=== PATIENT | male | born 1965 | race Hispanic/Latino ===

== ENCOUNTER 2020-07-23 03:20 | Emergency (ER) | payer SELFPAY ==
[~2020-07-23] VITALS: Ht 170.2 cm; Wt 89.4 kg
--- NOTE | 2020-07-23 03:25 | NUR ---
ARRIVAL PT ARRIVED AMBULATORY POV WITH C/O ACUTE ONSET LEFT FLANK PAIN RADIATING TO ABDOMEN. PT DENIES N/V/D. PT STATES PAIN IS INTERMITTANT AND RATES CURRENT PAIN 05/21. PT BP ELEVATED 182/81. PT A & O X 3, RR REGULAR, UNLABORED. ABDOMEN SOFT, NON-DISTENDED BS WNL. PT PLACED IN GOWN, UA OBTAINED, IV INITIATED, LABS DRAWN, PLACED ON MONITOR FOR BP, HR, AND SPO2. AT BEDSIDE, ERP AT BEDSIDE, PENDING COMPLETION OF ORDERS.
[2020-07-23 03:27] VITALS: BP 181/82
[2020-07-23] MEDS ORDERED: NS 1000ML 1,000 ML IV STA (03:34)
[2020-07-23] MEDS ORDERED: TORADOL IV STA (03:34)
--- NOTE | 2020-07-23 03:38 | ER.PDOC ---
General Chief Complaint: Flank Pain Stated Complaint: KIDNEY PAIN Time seen by MD: 03:36 Source: patient Exam Limitations: no limitations History of Present Illness Initial Comments Intermittent left flank pain radiating to the left lower quadrant since yesterday. No fever or chills. No nausea or vomiting. Pain is mild to moderate. Timing/Duration: intermittent Severity/Quality: sharpness Radiation: LLQ Associated Symptoms: denies symptoms Exacerbated by: nothing Relieved By: nothing Vital Signs First Vital Signs Date Time Temp Pulse Resp B/P (MAP) Pulse Ox O2 Delivery O2 Flow Rate FiO2 07/23/20 03:27 98.0 72 16 07/23/20 03:27 96 07/23/20 03:27 181/82 (115) Room Air Last Vital Signs Date Time Temp Pulse Resp B/P (MAP) Pulse Ox O2 Delivery O2 Flow Rate FiO2 07/23/20 03:27 98.0 72 16 181/82 (115) 96 Room Air Past Medical History Medical History: diabetes, high cholesterol Surgical History: no surgical history Family History Significant Family History: no pertinent family hx Social History Smoking: non-smoker Alcohol Use: none Drug Use: none Constitutional: no symptoms reported EENTM: no symptoms reported Respiratory: no symptoms reported Cardiovascular: no symptoms reported Gastrointestinal: see HPI Genitourinary: see HPI All Other Systems: Reviewed and Negative Physical Exam General Appearance: No Apparent Distress, WD/WN Neck: Non-Tender, Full Range of Motion, Supple, Normal Inspection Respiratory: chest non-tender, lungs clear, normal breath sounds, no respiratory distress, no accessory muscle use Cardiovascular: Normal Peripheral Pulses, Regular Rate, Rhythm, No Edema, No Gallop, No JVD, No Murmur Gastrointestinal: Normal Bowel Sounds, No Organomegaly, No Pulsatile Mass, Tenderness (LLQ) Back: Normal Inspection, No CVA Tenderness, No Vertebral Tenderness Extremities: Normal Range of Motion, Non-Tender, Normal Inspection, No Pedal Edema, No Calf Tenderness, Normal Capillary Refill, Pelvis Stable Neurologic/Psychiatric: account liaison hospice II-XII NML as Tested, No Motor/Sensory Deficits, Alert, Normal Mood/Affect, Oriented x 3 Skin: Normal Color, Warm/Dry Lymphatic: No Adenopathy Results/Orders Results/Orders Orders - KEREN FIELDS MD Cbc With Auto Diff (07/23/20 03:34) Comprehensive Metabolic Panel (07/23/20 03:34) PT (07/23/20 03:34) Partial Thromboplastin Time. (07/23/20 03:34) Urinalysis (07/23/20 03:34) Ct Abd/Pelvis Wo Iv Contrast (07/23/20 03:34) Ketorolac Tromethamine (Toradol) (07/23/20 03:34) 0.9 % Sodium Chloride (Ns 1000ml) (07/23/20 03:34) 0.9 % Sodium Chloride (Ns 100ml) (07/23/20 03:40) Ketorolac Tromethamine (Toradol) (07/23/20 03:40) Urine Culture (07/23/20 03:26) Vital Signs Date Time Temp Pulse Resp B/P (MAP) Pulse Ox O2 Delivery O2 Flow Rate FiO2 07/23/20 03:27 98.0 72 16 181/82 (115) 96 Room Air 07/23/20 03:27 98.0 72 16 96 07/23/20 03:27 98.0 72 16 Administered Medications Medications (Trade) Dose Ordered Sig/Gita Route PRN Reason Start Time Stop Time Status Last Admin Dose Admin Ketorolac Tromethamine (Toradol) 30 mg STAT STAT IV 07/23/20 03:34 07/23/20 03:37 DC 07/23/20 03:46 30 MG Sodium Chloride 1,000 ml @ 1,200 mls/hr Q50M STAT IV 07/23/20 03:34 07/23/20 04:23 DC 07/23/20 03:46 1,200 MLS/HR Laboratory Tests Test 07/23/20 03:26 07/23/20 03:38 Urine Collection Type VOID Urine Color YELLOW (YELLOW) Urine Appearance CLEAR (CLEAR) Urine Bilirubin NEGATIVE MG/DL (NEGATIVE) Urine Ketones NEGATIVE (NEGATIVE) Urine Specific [place] >1.030 (1.005-1.035) Urine pH 5.0 (5.0-6.0) Urine Protein NEGATIVE (NEGATIVE) Urine Urobilinogen 0.2 (NEGATIVE) Urine Nitrate NEGATIVE (NEGATAIVE) Urine Leukocyte Esterase NEGATIVE (NEGATIVE) Urine Blood MODERATE (NEGATIVE) Urine RBC 0-2 RBC/HPF (NONE SEEN) Urine WBC 0-2 WBC/HPF (0-2) Urine Bacteria RARE (NONE SEEN) Urine Glucose NEGATIVE (NEGATIVE) White Blood Count 9.0 10^3/uL (4.5-11.0) Red Blood Count 4.16 10^6/uL (4.50-5.90) L Hemoglobin 12.8 g/dL (13.9-16.3) L Hematocrit 38.2 % (37.0-53.0) Mean Corpuscular Volume 91.8 fL (78-100) Mean Corpuscular Hemoglobin 30.8 pg (26-34) Mean Corpuscular Hemoglobin Concent 33.5 g/dL (33-36.5) Red Cell Distribution Width 13.7 % (11.5-14.5) Platelet Count 230 10^3/uL (150-400) Mean Platelet Volume 10.4 fL (7.8-11.0) Neutrophils (%) (Auto) 54.9 % (41.0-85.0) Lymphocytes (%) (Auto) 37.2 % (24.0-44.0) Monocytes (%) (Auto) 5.1 % (5.0-12.0) Neutrophils # (Auto) 4.9 10^3/uL (1.8-7.7) Lymphocytes # (Auto) 3.34 10^3/uL1 (1.0-4.8) Monocytes # (Auto) 0.5 10^3/uL (0.3-0.8) Absolute Immature Granulocyte (auto 0.01 10^3 u/L (0-2) Absolute Eosinophils (auto) 0.2 10^3/uL (0.0-0.2) Immature Granulocytes % 0.10 % (0.00-0.50) Eosinophils % 2.4 % (0.0-5.0) Basophils % 0.3 % (0.0-0.2) H Basophils # 0.0 10^3/uL (0.0-0.1) Prothrombin Time 9.4 SEC (9.3-11.3) Prothrombin Time INR (Non-Therap) 0.9 Activated Partial Thromboplast Time 20.4 SEC (24.67-30.72) Sodium Level 141 mmol/L (132-145) Potassium Level 3.9 mmol/L (3.6-5.2) Chloride Level 106.0 mmol/L (96-109) Carbon Dioxide Level 22.5 mmol/L (20.0-32) Anion Gap 16.4 Blood Urea Nitrogen 23 mg/dL (7-18) H Creatinine 1.14 mg/dL (0.59-1.40) Estimated GFR () 80.7 (>/=60) Est GFR (CKD-EPI)(Non-Afr [place]) 66.7 (>/=60) BUN/Creatinine Ratio 20.0 Glucose Level 164 mg/dL (70-110) H Calcium Level 9.3 mg/dL (8.4-10.5) Total Bilirubin 0.9 mg/dL (0.2-1.0) Aspartate Amino Transferase (AST) 24 U/L (0-35) Alanine Aminotransferase (ALT) 48 U/L (12-78) Alkaline Phosphatase 95 U/L (50-136) Total Protein 7.4 g/dL (6.4-8.2) Albumin 3.6 g/dL (3.4-5.0) Globulin 3.8 Albumin/Globulin Ratio 0.[address] abdomen/pelvis: No renal or ureteral stone or obstructive uropathy. 2. No acute process. Labs are normal. CT abdomen pelvis unremarkable. He continues to be pain-free. Reviewed labs and CT scan with him and he voiced understanding. ER DEPART Departure Time of Disposition: 04:31 Disposition: 01 HOME, SELF-CARE Impression: Primary Impression: Flank pain, acute Condition: Improved Referrals: ARNOLD VARGAS (PCP) PRIMARY CARE PROVIDER Additional Instructions: Ibuprofen Follow-up with your PCP in 2 to 3 days Return to ED if worsening pain or concerns Duration or Time Spent with Pa: 45 min KEREN FIELDS MD Jul 23, 2020 03:38
[2020-07-23] MEDS ORDERED: NS 100ML 100 ML IV ONE (03:40)
[2020-07-23] MEDS ORDERED: TORADOL ONE (03:40)
[2020-07-23 03:47] LABS: BASOPHIL % 0.3 % (0.0-0.2); EOSINOPHIL # 0.2 10^3/uL (0.0-0.2); EOSINOPHIL % 2.4 % (0.0-5.0); LYMPHOCYTES # 3.34 10^3/uL1 (1.0-4.8); LYMPHOCYTES % 37.2 % (24.0-44.0); MEAN CORP HGB 30.8 pg (26-34); MONOCYTES # 0.5 10^3/uL (0.3-0.8); MONOCYTES % 5.1 % (5.0-12.0); NEUTROPHIL # 4.9 10^3/uL (1.8-7.7); NEUTROPHILS % 54.9 % (41.0-85.0); PLATELET COUNT 230 10^3/uL (150-400); RED CELL DISTRIBUTION WIDTH 13.7 % (11.5-14.5)
--- NOTE | 2020-07-23 03:47 | NUR ---
CT PT TO CT VIA WHEELCHAIR AT THIS TIME WITH RAD. SIMONE
--- NOTE | 2020-07-23 03:53 | NUR ---
ROOM PT BACK TO ROOM FROM CT.
[2020-07-23 03:58] LABS: BILIRUBIN,URINE NEGATIVE (NEGATIVE); UA COLOR YELLOW (YELLOW); UROBILINOGEN,URINE 0.2 (NEGATIVE)
--- NOTE | 2020-07-23 04:11 | DIREP ---
PROCEDURE:CT ABD/PELVIS WITHOUT CONTRAST TECHNIQUE:No oral contrast was given. Axial cuts were obtained through the abdomen and pelvis without IV contrast. The images were viewed at lung and soft tissue settings. Sagittal and coronal reconstructions are provided. COMPARISON:None. INDICATIONS:Left flank pain FINDINGS: LOWER CHEST:No infiltrate or pleural effusion. LIVER:Normal. BILIARY:Partially contracted gallbladder. No gallstones or biliary duct dilatation. PANCREAS:Normal. SPLEEN:Normal. URINARY TRACT:No renal or ureteral stone, obstruction or perinephric inflammation. Unremarkable urinary bladder. ADRENALS:Normal. AORTA/VASCULAR:Aortoiliac calcification without dilatation. RETROPERITONEUM:Normal. BOWEL/MESENTERY:No bowel obstruction, inflammatory stranding, free fluid or air. Normal air-filled appendix. ABDOMINAL WALL:Normal. PELVIS:Normal. BONES:Degenerative changes. No acute findings. OTHER:Normal. CONCLUSION: 1. No renal or ureteral stone or obstructive uropathy. 2. No acute process. Dictated by: Alem Flowers MD on 07/23/2020 at 04:07 AM
[2020-07-23 04:12] LABS: CALCIUM 9.3 mg/dL (8.4-10.5); CARBON DIOXIDE 22.5 mmol/L (20.0-32)
[2020-07-23 04:40] VITALS: BP 130/63
--- NOTE | 2020-07-23 04:40 | NUR ---
DISCHARGE DC INSTRUCTIONS GIVEN TO PT/SPOUSE, VERBALIZED UNDERSTANDING. IV DC'D, TIP INTACT, PT HEATHER WELL. VITALS OBTAINED, WNL. PT DENIES PAIN UPON DISCHAREGE. PT VERBALIZED UNDERSTANDING. PT AMBULATED TO POV W/OUT DIFFICULTY.
== END 2020-07-23 04:40 | disposition home or self-care (01) ==
LOC: ER 03:20
DX: R10.32 Left lower quadrant pain (principal); E11.9 Type 2 diabetes mellitus without complications; E78.00 Pure hypercholesterolemia, unspecified
CPT/HCPCS: 36415; 74176; 80053; 81000; 85025; 85610; 85730; 87086; 96361; 96374; 99284; J1885